=== PATIENT | female | born 1960 | race Caucasian/White ===

== ENCOUNTER 2019-12-20 07:27 | Outpatient (CLI) | payer OTHER, SELFPAY ==
--- NOTE | ~2019-12-20 | MM_ITS ---
EXAMINATION: MM screening kayli BI w mayra HISTORY: Screening mammogram, family history of breast cancer in her mother. TECHNIQUE: Craniocaudal and mediolateral oblique 3-D tomosynthesis images were obtained and synthetic 2-D images were generated. CAD analysis was submitted and interpreted. COMPARISON: 12/15/2018, 12/12/2017, 12/09/2016 BREAST PARENCHYMAL COMPOSITION: There are scattered areas of fibroglandular density. FINDINGS: There is no evidence of suspicious mass, calcification, or architectural distortion to sugg est malignancy in either breast. There has been no suspicious interval change. IMPRESSION: 1. No mammographic evidence of malignancy. 2. Recommend routine screening mammography in one year. BI-RADS Category 1: Negative Reviewed, dictated and finalized at location A.
== END 2019-12-20 07:28 | disposition home or self-care (01) ==
LOC: ANHIMG 07:30
PROVIDERS: PCP Student in an Organized Health Care Education/Training Program; Visit Provider Student in an Organized Health Care Education/Training Program
DX: Z12.31 Encounter for screening mammogram for malignant neoplasm of breast (principal)
CPT/HCPCS: 77063; 77067

== ENCOUNTER 2020-04-29 07:38 | Outpatient (CLI) | payer OTHER, SELFPAY ==
[2020-04-29 07:57] LABS: Hematocrit 40.1 % (37.0-47.0); Mean Corpuscular HGB Conc 32.4 g/dl (32-36); Mean Corpuscular Volume 92.6 fl (80-100); Mean Platelet Volume 10.7 fl (7.4-10.4); Platelet Count Result 216 k/mm3 (150-375); Red Blood Count 4.33 M/mm3 (4.2-5.4); Red Cell Distribution Width 12.2 % (11.5-14.5); White Blood Count 4.6 K/mm3 (4.5-10.0)
[2020-04-29 08:10] LABS: Alanine Aminotransferase 15 U/L (4-35); Albumin Level 4.1 g/dL (3.5-5.1); Alkaline Phosphatase 64 U/L (38-126); Anion Gap 7 mmol/L (8-16); Aspartate Amino Transferase 19 U/L (14-36); Bilirubin,Total 0.5 mg/dL (0.2-1.3); Blood Urea Nitrogen 15 mg/dL (7-17); Calcium 9.6 mg/dL (8.4-10.2); Carbon Dioxide 29 mmol/L (22-30); Chloride 104 mmol/L (98-107); Cholesterol 196 mg/dL (0-200); Estimated Glomerular Filt Rate > 60; Glucose 102 mg/dL (65-105); HDL Direct 65 mg/dL; Potassium 4.3 mmol/L (3.4-5.0); Sodium 140 mmol/L (137-145); Triglycerides 77 mg/dL (<150)
[2020-04-29 08:21] LABS: LDL Cholesterol Direct 86 mg/dL
[2020-04-29 11:00] LABS: Free T4 Free Thyroxine Reflex 0.63 ng/dL (0.78-2.19)
== END 2020-04-29 07:39 | disposition home or self-care (01) ==
PROVIDERS: PCP Student in an Organized Health Care Education/Training Program; Visit Provider Nurse Practitioner Family
DX: E03.9 Hypothyroidism, unspecified (principal); Z00.00 Encounter for general adult medical examination without abnormal findings; I10 Essential (primary) hypertension; E78.5 Hyperlipidemia, unspecified
CPT/HCPCS: 36415; 80053; 80061; 84439; 84443; 85027

== ENCOUNTER 2020-06-10 07:58 | Outpatient (CLI) | payer OTHER, SELFPAY ==
[2020-06-10 08:55] LABS: Free T4 Free Thyroxine 0.83 ng/mL (0.78-2.19)
== END 2020-06-10 07:59 | disposition home or self-care (01) ==
LOC: ANHLAB 08:00
PROVIDERS: PCP Nurse Practitioner Family; Visit Provider Nurse Practitioner Family
DX: R79.89 Other specified abnormal findings of blood chemistry (principal); R94.6 Abnormal results of thyroid function studies
CPT/HCPCS: 36415; 84439; 84443

== ENCOUNTER 2020-12-21 07:29 | Outpatient (CLI) | payer OTHER, SELFPAY ==
--- NOTE | ~2020-12-21 | MM_ITS ---
EXAMINATION: MM screening kayli BI w mayra HISTORY: Screening mammogram, family history of breast cancer in her mother. TECHNIQUE: Craniocaudal and mediolateral oblique 3-D tomosynthesis images were obtained and synthetic 2-D images were generated. CAD analysis was submitted and interpreted. COMPARISON: 12/20/2019, 12/15/2018, 12/12/2017 BREAST PARENCHYMAL COMPOSITION: The breasts are heterogeneously dense, which may obscure small masses . FINDINGS: There is no evidence of suspicious mass, calcification, or architectural distortion to sugg est malignancy in either breast. There has been no suspicious interval change. IMPRESSION: 1. No mammographic evidence of malignancy. 2. Recommend routine screening mammography in one year. BI-RADS Category 1: Negative Reviewed, dictated and finalized at location A.
--- NOTE | ~2020-12-21 | DEXA_ITS ---
Bone Density Report Name: Eleanor Breaux Age: 60 Sex: Female Ethnicity: White Date of : 1960 Indication: osteopenia; postmenopausal Referring Provider: Halley Denny Study: Bone densitometry was performed. Exam Date: December 21, 2020 Accession number: [id number] Bone Density: Region BMD T-score Z-score Classification AP Spine (L1-L4) 0.748 -2.7 -1.2 Osteoporosis Femoral Neck (Left) 0.511 -3.0 -1.7 Osteoporosis Total Hip (Left) 0.642 -2.5 -1.4 Osteoporosis Total Hip Bilateral Avg 0.688 -2.1 -1.0 Osteopenia Femoral Neck (Right) 0.628 -2.0 -0.6 Osteopenia Total Hip (Right) 0.733 -1.7 -0.7 Osteopenia World Health Organization criteria for BMD impression classify patients as: Normal (T-score at or above -1.0), Osteopenia (T-score between -1.0 and -2.5), or Osteoporosis (T-score at or below -2.5). 10-year Fracture Risk: FRAX not reported because: Some T-score for Spine Total or Hip Total or Femoral Neck at or below -2.5 Previous Exams: Region Exam Age BMD T-score BMD Change BMD Change Date g/cm2 vs Baseline vs Previous AP Spine(L1-L4) 12/21/2020 60 0.748 -2.7 -0.098(-11.6%) -0.097(-11.5%) 06/04/2017 57 0.844 -1.8 -0.002(-0.2%)# 0.030(3.6%)* 04/25/2015 55 0.815 -2.1 -0.031(-3.7%)# -0.031(-3.7%)# 11/23/2012 52 0.846 -1.8 Total Hip(Left) 12/21/2020 60 0.642 -2.5 -0.116(-15.3%) -0.224(-25.9%) 06/04/2017 57 0.866 -0.6 0.108(14.3%)# 0.094(12.1%)* 04/25/2015 55 0.772 -1.4 0.015(1.9%)# 0.015(1.9%)# 11/23/2012 52 0.758 -1.5 Total Hip(Right) 12/21/2020 60 0.733 -1.7 -0.048(-6.2%)# -0.133(-15.3%) 06/04/2017 57 0.865 -0.6 0.085(10.9%)# 0.081(10.3%)* 04/25/2015 55 0.785 -1.3 0.004(0.5%)# 0.004(0.5%)# 11/23/2012 52 0.781 -1.3 *Denotes significance at 95% confidence level, LSC for AP Spine = 0.022 g/cm2, LSC for Total Hip = 0.027 g/cm2 Clinical Information Provided by Patient: Has used the following medications: Vitamin D, Calcium Patient maximum height was 62 Menopause Age: 51 Drinks caffeinated beverages Onset of menses at age 11 Number of children 2 Impression: The patient has osteoporosis, based on the Left Femoral Neck T-score. The BMD for the AP Spine(L1-L4) decreased, changing by -11.5% since the last DXA exam. The BMD for the Total Hip(Left) decreased, changing by -25.9% since the last DXA exam. The BMD for the Total Hip(Right) decreased, changing by -15.3% since the last DXA exam.
== END 2020-12-21 07:30 | disposition home or self-care (01) ==
PROVIDERS: PCP Nurse Practitioner Family; Visit Provider Student in an Organized Health Care Education/Training Program
DX: Z12.31 Encounter for screening mammogram for malignant neoplasm of breast (principal); Z78.0 Asymptomatic menopausal state; M81.0 Age-related osteoporosis without current pathological fracture
CPT/HCPCS: 77063; 77067; 77080

== ENCOUNTER 2021-06-19 06:47 | Outpatient (CLI) | payer OTHER, SELFPAY ==
[2021-06-19 07:53] LABS: Alanine Aminotransferase 18 U/L (4-35); Albumin Level 4.3 g/dL (3.5-5.1); Alkaline Phosphatase 53 U/L (38-126); Anion Gap 8 mmol/L (8-16); Aspartate Amino Transferase 23 U/L (14-36); Bilirubin,Total 0.3 mg/dL (0.2-1.3); Blood Urea Nitrogen 27 mg/dL (7-17); Calcium 9.2 mg/dL (8.4-10.2); Carbon Dioxide 22 mmol/L (22-30); Chloride 107 mmol/L (98-107); Cholesterol 225 mg/dL (0-200); Estimated Glomerular Filt Rate > 60; Glucose 111 mg/dL (65-110); HDL Direct 77 mg/dL; Potassium 4.4 mmol/L (3.4-5.0); Sodium 137 mmol/L (137-145); Triglycerides 83 mg/dL (<150)
[2021-06-19 08:05] LABS: LDL Cholesterol Direct 98 mg/dL
[2021-06-19 08:07] LABS: Basophils Absolute Auto 0.1 K/mm3 (0.0-0.1); Basophils Percent Auto 0.9 % (0.2-1.2); Eosinophils Absolute Auto 0.2 K/mm3 (0-0.3); Hematocrit 41.4 % (37.0-47.0); Immature Granulocyte Absolute 0.01 K/mm3 (0.00-0.031); Immature Granulocyte Percent A 0.2 % (0-0.5); Lymphocytes Absolute Auto 1.58 K/mm3 (0.9-3.2); Mean Corpuscular HGB Conc 31.4 g/dl (32-36); Mean Corpuscular Volume 95.6 fl (80-100); Mean Platelet Volume 10.6 fl (7.4-10.4); Monocytes Absolute Auto 0.5 K/mm3 (0.1-0.6); Monocytes Percent Auto 9.3 % (2.6-8.5); Neutrophils Percent Auto 56.6 % (45.5-73.1); Platelet Count Result 223 k/mm3 (150-375); Red Blood Count 4.33 M/mm3 (4.2-5.4); Red Cell Distribution Width 12.6 % (11.5-14.5); White Blood Count 5.3 K/mm3 (4.5-10.0)
[2021-06-19 08:11] LABS: Vitamin D 25 Hydroxy 53.8 ng/mL
== END 2021-06-19 06:48 | disposition home or self-care (01) ==
LOC: ANHLAB 06:50
PROVIDERS: PCP Nurse Practitioner Family; Visit Provider Nurse Practitioner Family
DX: E55.9 Vitamin D deficiency, unspecified (principal); Z00.00 Encounter for general adult medical examination without abnormal findings; Z13.220 Encounter for screening for lipoid disorders
CPT/HCPCS: 36415; 80053; 80061; 82306; 84443; 85025

== ENCOUNTER 2022-01-25 07:20 | Outpatient (CLI) | payer OTHER, SELFPAY ==
--- NOTE | ~2022-01-25 | MM_ITS ---
EXAMINATION: MM screening kayli BI w mayra HISTORY: Screening TECHNIQUE: Craniocaudal and mediolateral oblique 3-D tomosynthesis images were obtained and synthetic 2-D images were generated. CAD analysis was submitted and interpreted. COMPARISON: Comparison to multiple prior studies sequentially, with oldest reviewed study dated 11/26. BREAST PARENCHYMAL COMPOSITION: There are scattered areas of fibroglandular density. FINDINGS: There is no evidence of suspicious mass, calcification, or architectural distortion to sugg est malignancy in either breast. There has been no suspicious interval change. IMPRESSION: 1. No mammographic evidence of malignancy. 2. Recommend routine screening mammography in one year. BI-RADS Category 1: Negative Reviewed, dictated and finalized at location A.
== END 2022-01-25 07:21 | disposition home or self-care (01) ==
LOC: ANHIMG 07:22
PROVIDERS: PCP Nurse Practitioner Family; Visit Provider Obstetrics & Gynecology
DX: Z12.31 Encounter for screening mammogram for malignant neoplasm of breast (principal)
CPT/HCPCS: 77063; 77067

== ENCOUNTER 2022-06-27 10:10 | Outpatient (CLI) | payer OTHER, SELFPAY ==
[2022-06-27 12:01] LABS: Basophils Percent Auto 0.6 % (0.2-1.2); Eosinophils Absolute Auto 0.1 K/mm3 (0-0.3); Eosinophils Percent Auto 1.1 % (0-4.4); Hematocrit 42.1 % (37.0-47.0); Hemoglobin 13.5 g/dL (12.0-15.0); Immature Granulocyte Absolute 0.01 K/mm3 (0.00-0.031); Immature Granulocyte Percent A 0.2 % (0-0.5); Lymphocytes Absolute Auto 1.81 K/mm3 (0.9-3.2); Lymphocytes Percent Auto 38.6 % (18.3-44.2); Mean Corpuscular HGB Conc 32.1 g/dl (32-36); Mean Corpuscular Hemoglobin 30.6 pg (26-34); Mean Corpuscular Volume 95.5 fl (80-100); Monocytes Absolute Auto 0.4 K/mm3 (0.1-0.6); Monocytes Percent Auto 7.9 % (2.6-8.5); Neutrophils Absolute Auto 2.4 K/mm3 (1.3-6.7); Neutrophils Percent Auto 51.6 % (45.5-73.1); Platelet Count Result 255 k/mm3 (150-375); Red Blood Count 4.41 M/mm3 (4.2-5.4); Red Cell Distribution Width 12.5 % (11.5-14.5); White Blood Count 4.7 K/mm3 (4.5-10.0)
[2022-06-27 12:11] LABS: Alanine Aminotransferase 21 U/L (6-35); Albumin Level 4.6 g/dL (3.5-5.1); Alkaline Phosphatase 68 U/L (38-126); Anion Gap 8 mmol/L (8-16); Aspartate Amino Transferase 26 U/L (14-36); Bilirubin,Total 0.4 mg/dL (0.2-1.3); Blood Urea Nitrogen 18 mg/dL (7-17); Calcium 9.3 mg/dL (8.4-10.2); Carbon Dioxide 26 mmol/L (22-30); Chloride 101 mmol/L (98-107); Cholesterol 260 mg/dL (0-200); Estimated Glomerular Filt Rate > 60; Glucose 91 mg/dL (65-110); HDL Direct 69 mg/dL; Sodium 135 mmol/L (137-145); Triglycerides 80 mg/dL (<150)
[2022-06-27 12:22] LABS: LDL Cholesterol Direct 113 mg/dL
[2022-06-27 14:39] LABS: Free T4 Free Thyroxine 0.97 ng/mL (0.78-2.19); Vitamin D 25 Hydroxy 55.8 ng/mL
== END 2022-06-27 10:11 | disposition home or self-care (01) ==
LOC: ANHLAB 10:12
PROVIDERS: PCP Nurse Practitioner Family; Visit Provider Nurse Practitioner Family
DX: Z00.00 Encounter for general adult medical examination without abnormal findings (principal); E78.5 Hyperlipidemia, unspecified; E55.9 Vitamin D deficiency, unspecified
CPT/HCPCS: 36415; 80053; 80061; 82306; 84439; 84443; 85025

== ENCOUNTER 2022-12-26 06:32 | Outpatient (CLI) | payer OTHER, SELFPAY ==
[2022-12-26 10:36] LABS: Cholesterol 204 mg/dL (0-200); HDL Direct 60 mg/dL; Triglycerides 91 mg/dL (<150)
[2022-12-26 10:47] LABS: LDL Cholesterol Direct 93 mg/dL
== END 2022-12-26 06:33 | disposition home or self-care (01) ==
PROVIDERS: PCP Nurse Practitioner Family; Visit Provider Nurse Practitioner Family
DX: E78.5 Hyperlipidemia, unspecified (principal)
CPT/HCPCS: 36415; 80061

== ENCOUNTER 2023-03-20 01:01 | Day surgery (SDC) | payer OTHER, SELFPAY ==
[2023-03-07 11:53] VITALS: BMI 21.2
--- NOTE | 2023-03-19 16:47 | PM.HPGS ---
History of Present Illness History of Present Illness Consent: Risks, benefits, and alternatives have been discussed and questions answered. Patient agrees to proceed with procedure. Chief complaint: neoplasm screening Narrative: Eleanor Breaux is a 62 year old female Referred for colon cancer screening. Review of Systems Review of Systems: All systems reviewed & are unremarkable except as noted in HPI and below PMFSH Past Medical History Medical History Encounter for gynecological examination (general) (routine) without abnormal findings Hyperlipidemia Melanoma in situ (~10/2021) Lt upper thigh. Follows with Dr Romero Normal colonoscopy (~2011) Dr Valentin Osteopenia Osteoporosis Vaginal dryness, menopausal Surgical History Surgical History H/O LEEP History of melanoma excision Left leg 11/2021 Family History Family History Mother Family history of elevated blood lipids Father Family history of diabetes mellitus in first degree relative Family history of sleep apnea Family history of atrial fibrillation Diabetes mellitus Family history of blood dyscrasia, Onset Age: 72 Grandparent Family history of malignant neoplasm of bone Family history of malignant neoplasm of kidney Diabetes mellitus Other Family history of malignant neoplasm Hypertension Social History Social History Social History: Patient is and lives with , Darren in [place]. She is an RN, work full-time for [employer]. Smoking status: Never smoker Second hand tobacco smoke exposure: No Alcohol intake: current Alcohol use details: very rare use Substance use: never Substance use type: does not use Lack of Transportation: No Lack of Food: Never True Current Housing: I Have Housing Concerned About Future Housing: No Difficulty Paying Gas/Electric Bills: No Difficulty Paying for Meds: No Currently Unemployed: No Education: Associate Degree Difficulty w/ Childcare or Family Care: No Living arrangements: with family Occupation/Education: occupation Additional occupation/education comments: RN at [employer] Gender identity (if verbalized by the patient): Female Sexual Orientation (if Verbalized by the Patient): Straight or Heterosexual Spiritual care concerns: No Agree to blood products: Yes Meds Home Medications and Allergies Home Medications Medication Instructions Recorded Confirmed Type ascorbic acid (vitamin C) 250 mg 250 mg PO DAILY 05/28/19 03/20/23 History tablet ojqe-lxs-hjodd-pbopmcftk-isfzwtzs-kzkr-pectin 1 tablet PO DAILY 05/28/19 03/20/23 History 1,000 mg tablet (Fiber 6) cholecalciferol (vitamin D3) 50 2,000 unit PO DAILY 05/28/19 03/20/23 History mcg (2,000 unit) tablet estradiol 10 mcg vaginal insert 10 mcg vaginal 2XW 05/28/19 03/20/23 History (Imvexxy Maintenance Pack) omega-3 fatty acids 1,000 mg 1,000 mg PO DAILY 05/28/19 03/20/23 History capsule vitamin E 200 unit capsule 200 unit PO DAILY 05/28/19 03/20/23 History alendronate 35 mg tablet See Rx Instructions .Route 06/20/22 03/20/23 Rx .COMPLEX #12 tabs calcium carbonate 500 mg calcium 500 mg PO BID 03/07/23 03/20/23 History (1,250 mg) tablet Allergies Allergy/AdvReac Type Severity Reaction Status Date / Time penicillin G Allergy Mild Rash Verified 03/20/23 06:18 Penicillins Allergy Mild Rash Verified 03/20/23 06:18 tree nut Allergy Unknown Other Verified 03/20/23 06:18 codeine AdvReac Mild NAUSEA Verified 03/20/23 06:18 Exam Const: General: alert Orientation/consciousness: patient oriented x3 Resp: Auscultation: clear to auscultation bilaterally Cardio: Rhythm: regular rhythm GI: GI Palp: Yes Soft to palpation and No Tenderness to palpa
[2023-03-20 06:21] VITALS: BP 103/63; PULSE 69; RESP 16; TEMP 36.6; O2SAT 99
[2023-03-20] MEDS: LACTATED RINGERS 1,000 ML 150 ML IV CONT (06:30)
--- NOTE | 2023-03-20 07:00 | WPDANESEPPF ---
Anes - Initial Pre Proc Eval Procedure: Operation Date: 03/20/23 07:30 Proposed Procedures p Screening Colonoscopy - Kenny Valentin MD Date/Time: 03/20/23 07:00 Surgeon: Kenny Valentin MD Pre Op Diagnosis: neoplasm screening Patient Data Age: 62 Gender: F Height: 1.55 m Weight: 50.1 kg Last Vital Signs Temp 36.6 C 03/20/23 06:21 Pulse 69 03/20/23 06:21 Resp 16 03/20/23 06:21 BP 103/63 03/20/23 06:21 Pulse Ox 99 03/20/23 06:21 O2 Del Method Room Air 03/20/23 06:21 Allergies Allergy/AdvReac Type Severity Reaction Status Date / Time penicillin G Allergy Mild Rash Verified 03/20/23 06:18 Penicillins Allergy Mild Rash Verified 03/20/23 06:18 tree nut Allergy Unknown Other Verified 03/20/23 06:18 codeine AdvReac Mild NAUSEA Verified 03/20/23 06:18 Home Medications Medication Instructions Recorded Confirmed Type ascorbic acid (vitamin C) 250 mg 250 mg PO DAILY 05/28/19 03/20/23 History tablet ijjq-vqi-qoukl-ydreanrea-ntrcgrom-edpi-pectin 1 tablet PO DAILY 05/28/19 03/20/23 History 1,000 mg tablet (Fiber 6) cholecalciferol (vitamin D3) 50 2,000 unit PO DAILY 05/28/19 03/20/23 History mcg (2,000 unit) tablet estradiol 10 mcg vaginal insert 10 mcg vaginal 2XW 05/28/19 03/20/23 History (Imvexxy Maintenance Pack) omega-3 fatty acids 1,000 mg 1,000 mg PO DAILY 05/28/19 03/20/23 History capsule vitamin E 200 unit capsule 200 unit PO DAILY 05/28/19 03/20/23 History alendronate 35 mg tablet See Rx Instructions .Route 06/20/22 03/20/23 Rx .COMPLEX #12 tabs calcium carbonate 500 mg calcium 500 mg PO BID 03/07/23 03/20/23 History (1,250 mg) tablet Patient hx anesthesia problems: none Family hx anesthesia problems: none Results Review: All pre-operative results and documents have been reviewed as part of the pre-operative evaluation. [facility] Past Medical History Medical History Encounter for gynecological examination (general) (routine) without abnormal findings Hyperlipidemia Melanoma in situ (~10/2021) Lt upper thigh. Follows with Dr Romero Normal colonoscopy (~2011) Dr Valentin Osteopenia Osteoporosis Vaginal dryness, menopausal Surgical History Surgical History H/O LEEP History of melanoma excision Left leg 11/2021 Family History Family History Mother Family history of elevated blood lipids Father Family history of diabetes mellitus in first degree relative Family history of sleep apnea Family history of atrial fibrillation Diabetes mellitus Family history of blood dyscrasia, Onset Age: 72 Grandparent Family history of malignant neoplasm of bone Family history of malignant neoplasm of kidney Diabetes mellitus Other Family history of malignant neoplasm Hypertension Social History Social History Social History: Patient is and lives with , Darren in [place]. She is an RN, work full-time for [employer]. Smoking status: Never smoker Second hand tobacco smoke exposure: No Alcohol intake: current Alcohol use details: very rare use Substance use: never Substance use type: does not use Lack of Transportation: No Lack of Food: Never True Current Housing: I Have Housing Concerned About Future Housing: No Difficulty Paying Gas/Electric Bills: No Difficulty Paying for Meds: No Currently Unemployed: No Education: Associate Degree Difficulty w/ Childcare or Family Care: No Living arrangements: with family Occupation/Education: occupation Additional occupation/education comments: RN at [employer] Gender identity (if verbalized by the patient): Female Sexual Orientation (if Verbalized by the Patient): Straight or Heterosexual Spiritual care concerns: No Agree to blood p
[2023-03-20 07:55] VITALS: BP 92/46; PULSE 73; RESP 12; O2SAT 99
[2023-03-20 08:05] VITALS: BP 92/58; PULSE 68; RESP 24; O2SAT 100
[2023-03-20 08:15] VITALS: BP 92/56; PULSE 58; RESP 14; O2SAT 100
== END 2023-03-20 08:20 | disposition home or self-care (01) ==
PROVIDERS: PCP Family Medicine; Visit Provider Internal Medicine Gastroenterology
PROC: 0DJD8ZZ Inspection of Lower Intestinal Tract, Via Natural or Artificial Opening Endoscopic (ICD-10-PCS; CPT 45378; principal; 2023-03-20 07:30)
DX: Z12.11 Encounter for screening for malignant neoplasm of colon (principal); K63.5 Polyp of colon; M81.0 Age-related osteoporosis without current pathological fracture; M85.80 Other specified disorders of bone density and structure, unspecified site; N95.2 Postmenopausal atrophic vaginitis; E78.5 Hyperlipidemia, unspecified
CPT/HCPCS: 45380; 88305; J2704; J7120

== ENCOUNTER → 2023-04-01 07:21 | Outpatient (CLI) | payer OTHER, SELFPAY ==
--- NOTE | ~2023-04-01 | MM_ITS ---
EXAMINATION: MM screening kayli BI w mayra HISTORY: Screening mammogram TECHNIQUE: Craniocaudal and mediolateral oblique 3-D tomosynthesis images were obtained and synthetic 2-D images were generated. CAD analysis was submitted and interpreted. COMPARISON: 01/25/2022, 12/21/2020, 12/20/2019, 12/15/2018, 12/12/2017 bilateral screening mammogram examin ations BREAST PARENCHYMAL COMPOSITION: The breasts are heterogeneously dense, which may obscure small masses . FINDINGS: Stable fibroglandular asymmetry. There is no evidence of suspicious mass, calcification, or architectural distortion to suggest malignancy in either breast. There has been no suspicious interv al change. IMPRESSION: 1. No mammographic evidence of malignancy. 2. Recommend routine screening mammography in one year. BI-RADS Category 2: Benign finding(s). Reviewed, dictated and finalized at location A.
== END ==
PROVIDERS: PCP Family Medicine; Visit Provider Obstetrics & Gynecology
DX: Z12.31 Encounter for screening mammogram for malignant neoplasm of breast (principal)
CPT/HCPCS: 77063; 77067

== ENCOUNTER 2023-06-28 06:34 | Outpatient (CLI) | payer OTHER, SELFPAY ==
[2023-06-28 07:26] LABS: Basophils Percent Auto 0.7 % (0.2-1.2); Eosinophils Absolute Auto 0.1 K/mm3 (0-0.3); Eosinophils Percent Auto 2.4 % (0-4.4); Hematocrit 41.5 % (37.0-47.0); Hemoglobin 13.2 g/dL (12.0-15.0); Immature Granulocyte Absolute 0.01 K/mm3 (0.00-0.031); Immature Granulocyte Percent A 0.2 % (0-0.5); Lymphocytes Absolute Auto 1.64 K/mm3 (0.9-3.2); Mean Corpuscular HGB Conc 31.8 g/dl (32-36); Mean Corpuscular Volume 94.3 fl (80-100); Mean Platelet Volume 9.9 fl (7.4-10.4); Monocytes Absolute Auto 0.4 K/mm3 (0.1-0.6); Neutrophils Absolute Auto 2.4 K/mm3 (1.3-6.7); Neutrophils Percent Auto 51.7 % (45.5-73.1); Platelet Count Result 277 k/mm3 (150-375); White Blood Count 4.6 K/mm3 (4.5-10.0)
[2023-06-28 07:49] LABS: Alanine Aminotransferase 22 U/L (6-35); Albumin Level 4.1 g/dL (3.5-5.1); Alkaline Phosphatase 63 U/L (38-126); Anion Gap 8 mmol/L (8-16); Aspartate Amino Transferase 26 U/L (14-36); Bilirubin,Total 0.5 mg/dL (0.2-1.3); Blood Urea Nitrogen 18 mg/dL (7-17); Calcium 9.3 mg/dL (8.4-10.2); Carbon Dioxide 29 mmol/L (22-30); Chloride 102 mmol/L (98-107); Cholesterol 199 mg/dL (0-200); Estimated Glomerular Filt Rate > 60; Glucose 103 mg/dL (65-110); HDL Direct 61 mg/dL; Potassium 4.1 mmol/L (3.4-5.0); Sodium 139 mmol/L (137-145); Triglycerides 85 mg/dL (<150)
[2023-06-28 08:00] LABS: LDL Cholesterol Direct 88 mg/dL
[2023-06-28 08:32] LABS: Vitamin D 25 Hydroxy 70.7 ng/mL
[2023-06-28 10:57] LABS: Eosinophils Absolute Manual 0.18 K/mm3 (0.02-0.5); Eosinophils Percent Manual 4 % (0-4); Lymphocytes Absolute Manual 1.56 K/mm3 (1.1-4.5); Monocytes Absolute Manual 0.32 K/mm3 (0.1-0.90); Monocytes Percent Manual 7 % (3-9); Neutrophils Percent Manual 55 % (46-73); Platelet Estimate Adequate (Adequate); Schistocytes None Seen (NORMAL); Total Cells Counted 100
== END 2023-06-28 06:35 | disposition home or self-care (01) ==
PROVIDERS: PCP Family Medicine; Visit Provider Family Medicine
DX: Z00.00 Encounter for general adult medical examination without abnormal findings (principal); E55.9 Vitamin D deficiency, unspecified; E53.8 Deficiency of other specified B group vitamins; Z13.29 Encounter for screening for other suspected endocrine disorder; E78.5 Hyperlipidemia, unspecified
CPT/HCPCS: 36415; 80053; 80061; 82306; 82607; 84443; 85025

== ENCOUNTER 2023-12-24 07:41 | Outpatient (CLI) | payer OTHER, SELFPAY ==
--- NOTE | ~2023-12-24 | DEXA_ITS ---
Bone Density Report Name: SAMIA ORDAZ Age: 63 Sex: Female Ethnicity: White Date of : 1960 Indication: postmenopausal; screening for osteoporosis; Referring Provider: NICHOLAS VALDEZ Study: Bone densitometry was performed. Exam Date: December 24, 2023 Accession number: [id number] Bone Density: Region BMD T-score Z-score Classification AP Spine(L1-L4) 0.755 -2.7 -0.9 Osteoporosis Femoral Neck (Left) 0.548 -2.7 -1.2 Osteoporosis Total Hip (Left) 0.714 -1.9 -0.7 Osteopenia Femoral Neck (Right) 0.615 -2.1 -0.6 Osteopenia Total Hip (Right) 0.746 -1.6 -0.4 Osteopenia Total Hip Mean 0.730 -1.8 -0.6 Osteopenia World Health Organization criteria for BMD impression classify patients as: Normal (T-score at or above -1.0), Osteopenia (T-score between -1.0 and -2.5), or Osteoporosis (T-score at or below -2.5). 10-year Fracture Risk: FRAX not reported because: Some T-score for Spine Total or Hip Total or Femoral Neck at or below -2.5 Treated for osteoporosis Clinical Information Provided by Patient: Is being treated for osteoporosis Has used the following medications: Fosamax (i.e. alendronate), Vitamin D, Calcium Patient maximum height was 62 Menopause Age: 52 Drinks caffeinated beverages Onset of menses at age 11 Number of children 2 Impression: The patient has osteoporosis, based on the Total Spine T-score. Discussion: It is important to ask patients whether they are taking their medications and to encourage continued and appropriate compliance with their osteoporosis therapies to reduce fracture risk. It is also important to review their risk factors and encourage appropriate calcium and vitamin D intakes, exercise, fall prevention and other lifestyle measures. Follow-Up: Consider a repeat BMD and Vertebral Fracture Assessment (VFA) exam in 2 years or sooner if medically necessary, to reassess this patient's status. Reported by: BERYL on 12/24/2023 8:06:00 AM. Reviewed, dictated and finalized at location AYani QUIGLEY
== END 2023-12-24 07:42 | disposition home or self-care (01) ==
LOC: ANHIMG 07:42
PROVIDERS: PCP Family Medicine; Visit Provider Obstetrics & Gynecology
DX: M81.0 Age-related osteoporosis without current pathological fracture (principal); Z78.0 Asymptomatic menopausal state
CPT/HCPCS: 77080

== ENCOUNTER 2024-03-29 07:54 | Outpatient (CLI) | payer OTHER, SELFPAY ==
[2024-03-29 08:13] LABS: Calcium 9.2 mg/dL (8.4-10.2)
== END 2024-03-29 07:55 | disposition home or self-care (01) ==
LOC: ANHLAB 07:56
PROVIDERS: Visit Provider Obstetrics & Gynecology
DX: M81.0 Age-related osteoporosis without current pathological fracture (principal)
CPT/HCPCS: 36415; 82310

== ENCOUNTER 2024-04-07 09:01 | Outpatient (CLI) | payer OTHER, SELFPAY ==
--- NOTE | ~2024-04-07 | MM_ITS ---
EXAMINATION: MM screening kayli BI w mayra HISTORY: Screening TECHNIQUE: Craniocaudal and mediolateral oblique 3-D tomosynthesis images were obtained and synthetic 2-D images were generated. CAD analysis was submitted and interpreted. COMPARISON: Comparison to multiple prior studies sequentially, with oldest reviewed study dated 02/2018. BREAST PARENCHYMAL COMPOSITION: Dense: The breasts are heterogeneously dense, which may obscure small masses FINDINGS: There is no evidence of suspicious mass, calcification, or architectural distortion to sugg est malignancy in either breast. There has been no suspicious interval change. IMPRESSION: 1. No mammographic evidence of malignancy. 2. Recommend routine screening mammography in one year. BI-RADS Category 1: Negative Reviewed, dictated and finalized at location B.
== END 2024-04-07 09:02 | disposition home or self-care (01) ==
LOC: ANHIMG 09:05
PROVIDERS: PCP Family Medicine; Visit Provider Obstetrics & Gynecology
DX: Z12.31 Encounter for screening mammogram for malignant neoplasm of breast (principal)
CPT/HCPCS: 77063; 77067

== ENCOUNTER 2024-05-25 06:43 | Outpatient (RCR) | payer OTHER, SELFPAY ==
[2024-05-25 07:17] LABS: Calcium 8.9 mg/dL (8.4-10.2)
[2024-07-19 11:53] LABS: Calcium 9.1 mg/dL (8.4-10.2)
== END 2024-08-23 23:59 | disposition home or self-care (01) ==
LOC: ANHLAB 06:43
PROVIDERS: PCP Family Medicine; Visit Provider Obstetrics & Gynecology
DX: M81.0 Age-related osteoporosis without current pathological fracture (principal)
CPT/HCPCS: 36415; 82310

== ENCOUNTER 2024-07-19 06:52 | Outpatient (CLI) | payer OTHER, SELFPAY ==
[2024-07-19 07:13] LABS: Basophils Absolute Auto 0.1 K/mm3 (0.0-0.1); Basophils Percent Auto 1.1 % (0.2-1.2); Eosinophils Absolute Auto 0.3 K/mm3 (0-0.3); Eosinophils Percent Auto 7.3 % (0-4.4); Hematocrit 38.9 % (37.0-47.0); Hemoglobin 12.2 g/dL (12.0-15.0); Immature Granulocyte Absolute 0.01 K/mm3 (0.00-0.031); Immature Granulocyte Percent A 0.2 % (0-0.5); Lymphocytes Percent Auto 37.8 % (18.3-44.2); Mean Corpuscular HGB Conc 31.4 g/dl (32-36); Mean Corpuscular Hemoglobin 30.2 pg (26-34); Mean Corpuscular Volume 96.3 fl (80-100); Mean Platelet Volume 10.3 fl (7.4-10.4); Monocytes Absolute Auto 0.5 K/mm3 (0.1-0.6); Monocytes Percent Auto 10.2 % (2.6-8.5); Neutrophils Percent Auto 43.4 % (45.5-73.1); Platelet Count Result 226 k/mm3 (150-375); Red Blood Count 4.04 M/mm3 (4.2-5.4); Red Cell Distribution Width 13.1 % (11.5-14.5); White Blood Count 4.5 K/mm3 (4.5-10.0)
[2024-07-19 07:24] LABS: Hemoglobin A1C 5.5 % (<5.7)
[2024-07-19 07:25] LABS: Alanine Aminotransferase 17 U/L (6-35); Albumin Level 3.9 g/dL (3.5-5.1); Alkaline Phosphatase 74 U/L (38-126); Anion Gap 2 mmol/L (4-12); Aspartate Amino Transferase 22 U/L (14-36); Bilirubin,Total 0.3 mg/dL (0.2-1.3); Blood Urea Nitrogen 17 mg/dL (7-17); Calcium 9.1 mg/dL (8.4-10.2); Carbon Dioxide 30 mmol/L (22-30); Chloride 107 mmol/L (98-107); Cholesterol 219 mg/dL (0-200); Estimated Glomerular Filt Rate > 60; Glucose 98 mg/dL (65-110); HDL Direct 82 mg/dL; Potassium 4.8 mmol/L (3.4-5.0); Sodium 139 mmol/L (137-145); Triglycerides 68 mg/dL (<150)
[2024-07-19 07:36] LABS: LDL Cholesterol Direct 94 mg/dL
[2024-07-19 09:39] LABS: Vitamin D 25 Hydroxy 63.1 ng/mL
[2024-07-19 10:31] LABS: Free T4 Free Thyroxine Reflex 0.75 ng/dL (0.78-2.19)
== END 2024-07-19 06:53 | disposition home or self-care (01) ==
LOC: ANHLAB 06:53
PROVIDERS: PCP Family Medicine; Visit Provider Family Medicine
DX: Z00.00 Encounter for general adult medical examination without abnormal findings (principal); Z13.29 Encounter for screening for other suspected endocrine disorder; E55.9 Vitamin D deficiency, unspecified; R73.9 Hyperglycemia, unspecified; E78.5 Hyperlipidemia, unspecified; E53.8 Deficiency of other specified B group vitamins; Z79.899 Other long term (current) drug therapy
CPT/HCPCS: 36415; 80053; 80061; 82306; 82607; 83036; 84439; 84443; 85025

== ENCOUNTER 2024-09-13 07:05 | Outpatient (CLI) | payer OTHER, SELFPAY ==
--- OUTSIDE RECORDS SUMMARY | 2024-09-13 07:08 | XMS_ITS | Clinical Summary ---
Author Organization [facility] Address [address] [place] [address] Care Team Providers Care [place] Boatman Name Role Phone Unavailable Primary Care Provider Unavailabl e Source Comments [facility],non-owned Affiliates and Associated Physician Practices is amultiple site organization consisting of ambulatory clinics and hospital sitesin [place], [place], [place] and [place]. This disclosure is being madepursuant to the Care Everywhere program and may not contain all information available regarding this patient. Last updated 18.[facility] [employer] Social History Tobacco Use Types Packs/Day Years Used Date Smoking Tobacco: Never Assessed Sex and Gender Information Value Date Recorded Sex Assigned at Not on file Gender Identity Not on file Sexual Orientation Not on file Plan of Treatment Health Maintenance Due Date Last Done Comments BONE DENSITY TESTING 1960 COLOGUARD (AGES 45-75) - COL ON CA SCREENING 1960 COLON MONITORING 1960 COLONOSCOPY - COLON CA SCREENING 1960 CT COLONOGRAPHY - COLON CA SCREENING 1960 Colorectal Cancer Screening 1960 FIT - COLON CA SCREENING 1960 FLEX SIG - COLON CA SCREENING 1960 LIPID TESTING 1960 MAMMOGRAM 1960 PAP SMEAR 1959 HIV SCREENING 1974 HEPATITIS C SCREENING 03/29/1977 DTAP/TDAP/TD VACCINES (1 - Tdap) 1978 PNEUMOCOCCAL VACCINE 50+ (1 of 1 - PCV) 2009 ZOSTER VACCINE (1 of 2) 2009 COVID-19 VACCINE ( - 2023-2 5 season) 2024 INFLUENZA VACCINE (#1) 2024 DEPRESSION SCREENING 07/07/2024 Respiratory Syncytial Virus (RSV) Vaccine Pt: or over 60 yrs (1 - 1-dose 75+ series) 2034 HEPATITIS B VACCINE Aged Out No longe r eligible based on patient's age to complete this topic HIB VACCINE Aged Out No longer eligi ble based on patient's age to complete this topic HPV VACCINE Aged Out No longer eligi ble based on patient's age to complete this topic MENINGOCOCCAL (Group B) VACCINE Aged Out No longer eligible based on patient's age to complete this topic MENINGOCOCCAL VACCINE Aged Out No farrukh izzy eligible based on patient's age to complete this topic ELEANOR BREAUX Personal/Family Spouse [address] [place] [id number]
--- OUTSIDE RECORDS SUMMARY | 2024-09-13 07:08 | XMS_ITS | Patient Health Summary ---
Author Organization [facility] Address [address] [place] [address] Care Team Providers Care Bar Waiter/Waitress Name Role Phone Unavailable Primary Care Provider Unavailabl e Note from [facility],non-owned Affiliates and Associated Physician Practices is amultiple site organization consisting of ambulatory clinics and hospital sitesin [place], [place], [place] and [place]. This disclosure is being madepursuant to the Care Everywhere program and may not contain all information available regarding this patient. Last updated 18.[facility] Social History Tobacco Use Types Packs/Day Years Used Date Smoking Tobacco: Never Assessed Sex and Gender Information Value Date Recorded Sex Assigned at Not on file Gender Identity Not on file Sexual Orientation Not on file Procedures * DERMATOPATHOLOGY(Performed 10/10/2021) Results * DERMATOPATHOLOGY (10/10/2021 12:00 AM CDT) Case Report Dermatopathology Report Case: [id number] Authorizing Provider: Scottie Romero MD Collected: 10/10/2021 12:00 AM Ordering Location: [facility] DermPath Lab Received: 10/11/2021 01:41 PM Pathologist: Savana Mathur MD Specimen: Skin, left distal anterior thigh 4:52 PM CDT DERMATOPATHOLOGY LABORATORY Final Diagnosis Specimen A. SKIN, left distal anterior thigh: MELANOMA IN SITU, SUPERFICIAL SPREADING TYPE (D03.72) NOT PRESENT AT SAMPLED MARGIN (see microscopic description) 2 4:52 PM CDT DERMATOPATHOLOGY LABORATORY Clinical History R/O Dysplastic Nevus 4:52 PM CDT DERMATOPATHOLOGY LABORATORY Gross Description Specimen A: Received is one formalin filled container labeled with the patients name and designated left distal anterior thigh. The specimen consists of a shave removal measuring [id number] and it is inked. Jar 0. 2 4:52 PM CDT DERMATOPATHOLOGY LABORATORY Microscopic Description Specimen A. SKIN, left distal anterior thigh: There is a proliferation of melanocytes distributed in an irregular pattern, singly and in nests, at all levels of the epidermis. Melanocytes are highlighted with immunohistochemical staining for MART-1/Melan-A. This lesion is not present at the sampled margin of the specimen. COMMENT: This case was also reviewed by Dr. Rebekah Marin, who agrees. 2 4:52 PM CDT DERMATOPATHOLOGY LABORATORY Disclaimer An external and internal positive and negative controls are appropriate for the histochemical, immunohistochemical and immunofluorescence stain(s) in this case (if any), except where stated explicitly. The performance characteristics of the stain(s) cited in this report were developed and its performance characteristic determined by the Dermatopathology Laboratory at [facility], directed by Dr. Charis Vo. These tests need not be, and therefore are not, approved by the [place] Food and Drug Administration. The tests are used for clinical purposes. Billing Codes Specimen Charges Stain Charges 70165 1 11491 1 2 4:52 PM CDT DERMATOPATHOLOGY LABORATORY Embedded Images 2 4:52 PM CDT DERMATOPATHOLOGY LABORATORY Pathology/Cytolog y TISSUE SPECIMEN FROM SKIN / Unknown 10/10/2021 10/11/2021 1:41 PM CDT Scottie Romero MD LAB - PATHOLOGY/CYTO LOGY ORDERABLES DERMATOPATHOLOGY LABORATORY [facility] - Department of Dermatology [address], [address] Floor [address] [phone]
--- OUTSIDE RECORDS SUMMARY | 2024-09-13 07:08 | XMS_ITS | Encounter Summary ---
Author Organization [facility] Address [address] [place] [place] [address] Care Team Providers Care Skimmer Reverberatory Name Role Phone Unavailable Primary Care Provider Unavailabl e Encounter Details Date Type Department Care Team (Late st Contact Info) Description 10/11/2021 Lab Requisition [facility] DermPath Lab [address] [place] [phone] Scottie Romero MD [address] [place] [address] Social History Tobacco Use Types Packs/Day Years Used Date Smoking Tobacco: Never Assessed Sex and Gender Information Value Date Recorded Sex Assigned at Not on file Gender Identity Not on file Sexual Orientation Not on file documented as of this encounter Plan of Treatment Not on file documented as of this encounter Procedures Procedure Name Priority Date/Time Associated Diagnosis Comments DERMATOPATHOLOGY Routine 10/10/2021 12:0 0 AM CDT documented in this encounter Results * DERMATOPATHOLOGY (10/10/2021 12:00 AM CDT) Case Report Dermatopathology Report Case: [id number] Authorizing Provider: Scottie Romero MD Collected: 10/10/2021 12:00 AM Ordering Location: [facility] DermPath Lab Received: 10/11/2021 01:41 PM Pathologist: Savana Mathur MD Specimen: Skin, left distal anterior thigh 4:52 PM CDT DERMATOPATHOLOGY LABORATORY Final Diagnosis Specimen A. SKIN, left distal anterior thigh: MELANOMA IN SITU, SUPERFICIAL SPREADING TYPE (D03.72) NOT PRESENT AT SAMPLED MARGIN (see microscopic description) 4:52 PM CDT DERMATOPATHOLOGY LABORATORY Clinical History R/O Dysplastic Nevus 2 4:52 PM CDT DERMATOPATHOLOGY LABORATORY Gross Description Specimen A: Received is one formalin filled container labeled with the patients name and designated left distal anterior thigh. The specimen consists of a shave removal measuring [id number] and it is inked. Jar 0. 2 [...] characteristic determined by the Dermatopathology Laboratory at [facility], directed by Dr. Charis Vo. These tests need not be, and therefore are not, approved by the [place] Food and Drug Administration. The tests are used for clinical purposes. Billing Codes Specimen Charges Stain Charges 96424 1 46878 1 2 4:52 PM CDT DERMATOPATHOLOGY LABORATORY Embedded Images 2 4:52 PM CDT DERMATOPATHOLOGY LABORATORY Pathology/Cytolog y TISSUE SPECIMEN FROM SKIN / Unknown 10/10/2021 10/11/2021 1:41 PM CDT Scottie Romero MD LAB - PATHOLOGY/CYTO LOGY ORDERABLES DERMATOPATHOLOGY LABORATORY [facility] - Department of Dermatology [address], [address] [phone] documented in this encounter Visit Diagnoses Not on filedocumented in this encounter
--- OUTSIDE RECORDS SUMMARY | 2024-09-13 07:08 | XMS_ITS | Referral Summary ---
Author Organization [facility] Address [address] [facility] [place] [address] Care Team Providers Care Lens Blank Gauger Name Role Phone Unavailable Primary Care Provider Unavailabl e Source Comments [facility],non-owned Affiliates and Associated Physician Practices is amultiple site organization consisting of ambulatory clinics and hospital sitesin [place], [place], [place] and [place]. This disclosure is being madepursuant to the Care Everywhere program and may not contain all information available regarding this patient. Last updated 18.[facility] Social History Tobacco Use Types Packs/Day Years Used Date Smoking Tobacco: Never Assessed Sex and Gender Information Value Date Recorded Sex Assigned at Not on file Gender Identity Not on file Sexual Orientation Not on file Plan of Treatment Not on file ELEANOR BREAUX Personal/Family Spouse [address] [place] [address]
[2024-09-13 11:05] LABS: Free T3 3.52 pg/mL (2.45-5.93)
== END 2024-09-13 07:06 | disposition home or self-care (01) ==
LOC: ANHLAB 07:06
PROVIDERS: PCP Family Medicine; Visit Provider Family Medicine
DX: R79.89 Other specified abnormal findings of blood chemistry (principal)
CPT/HCPCS: 36415; 84439; 84443; 84481

== ENCOUNTER 2024-11-08 06:36 | Outpatient (RCR) | payer OTHER, SELFPAY ==
[2024-09-13 07:42] LABS: Calcium 9.2 mg/dL (8.4-10.2)
[2024-11-08 07:09] LABS: Calcium 9.5 mg/dL (8.4-10.2)
== END 2024-12-12 23:59 | disposition home or self-care (01) ==
LOC: ANHLAB 06:36
PROVIDERS: PCP Family Medicine; Visit Provider Obstetrics & Gynecology
DX: M81.0 Age-related osteoporosis without current pathological fracture (principal)
CPT/HCPCS: 36415; 82310

== ENCOUNTER 2025-01-10 06:49 | Outpatient (RCR) | payer OTHER, SELFPAY ==
[2025-01-10 08:45] LABS: Calcium 9.3 mg/dL (8.4-10.2)
== END 2025-04-10 23:59 | disposition home or self-care (01) ==
LOC: ANHLAB 06:49
PROVIDERS: PCP Family Medicine; Visit Provider Obstetrics & Gynecology
DX: M81.0 Age-related osteoporosis without current pathological fracture (principal)
CPT/HCPCS: 36415; 82310

== ENCOUNTER 2025-02-16 16:21 | Emergency (ER) | payer OTHER, SELFPAY ==
--- OUTSIDE RECORDS SUMMARY | 2025-02-16 16:23 | XMS_ITS | Encounter Summary ---
Author Organization [facility] Address [address] [place] [place] [address] Care Team Providers Care Pediatric Intensive Physician Name Role Phone Unavailable Primary Care Provider Unavailabl e Encounter Details Date Type Department Care Team (Late st Contact Info) Description 10/11/2021 Lab Requisition [facility] DermPath Lab [address] [facility] [place] [phone] Scottie Romero MD [address] [address] Social History Tobacco Use Types Packs/Day Years Used Date Smoking Tobacco: Never Assessed Comments Unknown Sex and Gender Information Value Date Recorded Sex Assigned at Not on file Legal Sex Female 1:35 PM CDT Gender Identity Not on file Sexual Orientation Not on file documented as of this encounter Plan of Treatment Not on file documented as of this encounter Procedures Procedure Name Priority Date/Time Associated Diagnosis Comments DERMATOPATHOLOGY Routine 10/10/2021 12:0 0 AM CDT documented in this encounter Results * DERMATOPATHOLOGY (10/10/2021 12:00 AM CDT) Case Report Dermatopathology Report Case: [id number] Authorizing Provider: Scottie Romero MD Collected: 10/10/2021 [...] microscopic description) 4:52 PM CDT DERMATOPATHOLOGY LABORATORY at 1652 CDT Clinical History R/O Dysplastic Nevus 2 4:52 PM CDT DERMATOPATHOLOGY LABORATORY Gross Description Specimen A: Received is one formalin filled container labeled with the patients name and designated left distal anterior thigh. The specimen consists of a shave removal measuring [id number] and it is inked. Jar 0. 2 [...] characteristic determined by the Dermatopathology Laboratory at [facility], directed by Dr. Charis Vo. These tests need not be, and therefore are not, approved by the [place] Food and Drug Administration. The tests are used for clinical purposes. Billing Codes Specimen Charges Stain Charges 65709 1 41912 1 2 4:52 PM CDT DERMATOPATHOLOGY LABORATORY Embedded Images 2 4:52 PM CDT DERMATOPATHOLOGY LABORATORY Pathology/Cytolog y TISSUE SPECIMEN FROM SKIN / Unknown 10/10/2021 10/11/2021 1:41 PM CDT Scottie Romero MD LAB - PATHOLOGY/CYTOLOGY ORD ERABLES Final Result DERMATOPATHOLOGY LABORATORY [facility] - Department of Dermatology [address], [address] [phone] documented in this encounter Visit Diagnoses Not on filedocumented in this encounter
--- OUTSIDE RECORDS SUMMARY | 2025-02-16 16:23 | XMS_ITS | Clinical Summary ---
Author Organization [facility] Address [address] [place] [address] Care Team Providers Care Trim And Burr Operator Name Role Phone Unavailable Primary Care Provider Unavailabl e Source Comments [facility],non-owned Affiliates and Associated Physician Practices is amultiple site organization consisting of ambulatory clinics and hospital sitesin [place], [place], [place] and [place]. This disclosure is being madepursuant to the Care Everywhere program and may not contain all information available regarding this patient. Last updated 18.[facility] [employer] Social History Tobacco Use Types Packs/Day Years [...] SCREENING 1960 LIPID TESTING 1960 MAMMOGRAM 1959 HIV SCREENING 1974 HEPATITIS C SCREENING 03/29/1977 DTAP/TDAP/TD VACCINES (1 - Tdap) 1978 PAP SMEAR 1980 PNEUMOCOCCAL VACCINE 50+ (1 of 1 - PCV) 2009 ZOSTER VACCINE (1 of 2) 2009 COVID-19 VACCINE ( - 2023-2 5 season) 2024 DEPRESSION SCREENING 07/07/2024 INFLUENZA VACCINE (#1) 2025 Respiratory Syncytial Virus (RSV) Vaccine Pt: or [...] to complete this topic MENINGOCOCCAL (Group B) VACC INE SHARED DECISION-MAKING Aged Out No longer eligibl e based on patient's age to complete this topic MENINGOCOCCAL GROUPS A/C/Y/W VACCINE Aged Out No longer eligible b ased on patient's age to complete this topic Insurance [facility]
--- OUTSIDE RECORDS SUMMARY | 2025-02-16 16:23 | XMS_ITS | Patient Health Record ---
Author Organization [facility] Address [address] [place], [place] [id number] Care Team Providers Care Director Custom Name Role Phone ParisSURJIT willett Unavailable [phone] Kim Garcia Unavailable Unavailable Reason For Referral No Information Plan Of Treatment No Information Insurance Providers Payer Name Payer Address Payer Phone Subscriber Number Group Number Insured Name Patient Relationship to Insured Coverage Start Date Coverage End Date DAMONR Enrrique / BESSY [address] [id number] SAMIA ORDAZ Self - patient is the insured
[2025-02-16 16:36] VITALS: BP 112/59; PULSE 71; RESP 18; TEMP 36.6; O2SAT 99
[2025-02-16 16:46] LABS: EDUAAPPEAR Cloudy; EDUABILI Negative (Negative); EDUABLOOD 1+ (Negative); EDUACOLOR1 Yellow; EDUAGLUCOSE Negative (Negative); EDUAKETONE Negative (Negative); EDUALEUKO 2+ (Negative); EDUANITRATE Negative (Negative); EDUAPH 5.5; EDUAPROTEIN 1+ (Negative); EDUASPGRAVITY 1.020; EDUAUROBILI 0.2
--- NOTE | 2025-02-16 16:47 | ED_ITS ---
HPI - Female Genitourinary General Chief complaint: Urogenital-Female Stated complaint: bladder infection Time Seen by Provider: 02/16/25 16:47 Source: patient and RN notes reviewed Mode of arrival: ambulatory Limitations: no limitations History of Present Illness HPI Narrative: 64-year-old female presents Express Care complaining of urinary symptoms for for days. Patient reports having dysuria, increased frequency, hesitancy. Patient denies any fevers, abdominal pain, body aches, chills, nausea, vomiting, diarrhea, vaginal bleeding or vaginal discharge, or any other symptoms. Patient has has been taking ibuprofen and cystex without relief. Patient denies any significant past medical history. Related Data Home Medications ?Medication ?Instructions ?Recorded ?Confirmed ?Last Taken ?Type ascorbic acid (vitamin C) 250 mg 250 mg PO DAILY 05/28/19 08/18/24 03/18/23 History tablet cholecalciferol (vitamin D3) 50 2,000 unit PO DAILY 05/28/19 08/18/24 03/18/23 History mcg (2,000 unit) tablet omega-3 fatty acids 1,000 mg 1,000 mg PO DAILY 05/28/19 08/18/24 03/18/23 History capsule vitamin E 200 unit capsule 200 unit PO DAILY 05/28/19 08/18/24 03/18/23 History calcium carbonate 500 mg PO BID 03/07/23 08/18/24 03/18/23 History magnesium 2 tab-cap PO DAILY 05/28/24 08/18/24 Unknown History multivitamin (Daily Multi-Vitamin 1 tablet PO DAILY 06/02/24 08/18/24 Unknown History tablet) romosozumab-aqqg 105 mg/1.17 mL 210 mg subcut MONTHLY 06/02/24 08/18/24 Unknown History subcutaneous syringe (Evenity) Allergies Allergy/AdvReac Type Severity Reaction Status Date / Time penicillin G Allergy Mild Rash Verified 02/16/25 16:29 Penicillins Allergy Mild Rash Verified 02/16/25 16:29 tree nut Allergy Unknown Other Verified 02/16/25 16:29 codeine AdvReac Mild NAUSEA Verified 02/16/25 16:29 Review of Systems Review of Systems: CONSTITUTIONAL: Denies fever, chills, body aches, or sweats. EYES: Denies visual changes, redness, or discharge. ENT: Denies rhinorrhea, congestion, sore throat, or otalgia. CARDIOVASCULAR: Denies chest pain, palpitations, or edema. RESPIRATORY: Denies cough or dyspnea. GASTROINTESTINAL: Denies abdominal pain, nausea, vomiting, or diarrhea. GENITOURINARY: Positive for dysuria, increased frequency, hesitancy. Negative for hematuria, vaginal bleeding, vaginal discharge. SKIN: Denies rash or itching. MUSCULOSKELETAL: Denies back pain, joint pain, or myalgia. NEUROLOGIC: Denies headache, numbness, or weakness. PSYCHIATRIC: Denies anxiety or depression. All other systems reviewed are negative, except as documented in HPI. [facility] Past Medical History Medical History Hyperlipidemia Melanoma in situ (~10/2021) Lt upper thigh. Follows with Dr Romero Osteoporosis Vaginal dryness, menopausal Surgical History Surgical History History of blepharoplasty (~2015) Bilateral reinsertion of levator aponeurosis. History of melanoma excision (~11/2021) Left leg 11/2021 H/O LEEP (~2005) Family History Family History Mother Family history of elevated blood lipids Father Family history of diabetes mellitus in first degree relative Family history of sleep apnea Family history of atrial fibrillation Diabetes mellitus Family history of blood dyscrasia, Onset Age: 72 Grandparent Family history of malignant neoplasm of bone Family history of malignant neoplasm of kidney Diabetes mellitus Other Family history of malignant neoplasm Hypertension Social History Social History Social History: Patient is and lives with , Darren in [place]. She is an RN, work full-time for [employer]. Smoking status: Never smoker Second hand tobacco smoke exposure: No Alcohol intake: current Alcohol use details: very rare use Substance use: never Substance use type: does not use Lack of Transportation: No Lack of Food: Never True Current Housing: I Have Housing Concerned About Future Housing: No Difficulty Paying Gas/Electric Bills: No Difficulty Paying for Meds: No Currently Unemployed: No Education: Associate Degree Difficulty w/ Childcare or Family Care: No Living arrangements: with family Occupation/Education: occupation Additional occupation/education comments: RN at [employer] Gender identity (if verbalized by the patient): Female Sexual Orientation (if Verbalized by the Patient): Straight or Heterosexual Spiritual care concerns: No Agree to blood products: Yes Comments At the time of my signature, I reviewed and agree with the nursing past medical, surgical, social, and family history. There is no relevant family history pertinent to the patient complaint. Exam Narrative: GENERAL: This is a well-nourished, well-developed adult, in no apparent distress. They are non ill-appearing, nontoxic appearing. HEAD: normocephalic, atraumatic. EYES: Sclera clear/white. Vision is grossly intact. Conjunctiva normal bilaterally. Extraocular movements intact. EARS: External ears normal,Hearing grossly intact. NOSE: External nose normal THROAT: Mucous membranes moist NECK: Normal range of motion CARDIOVASCULAR: Regular rate and rhythm. Normal S1-S2. No clicks, gallops, rubs, murmurs. RESPIRATORY: Respiratory rate normal, respiratory effort nonlabored, no respiratory distress. Lung sounds clear to auscultation throughout. Lung sounds equal bilaterally. No adventitious lung sounds. GASTROINTESTINAL: Abdomen soft, flat, non-tender, nondistended. Bowel sounds are active. No hepato-splenomegaly, or palpable masses. No guarding or rigidity. No rebound tenderness. SKIN: warm, Dry, intact with no suspicious lesions or rash, good texture and turgor. NEURO: awake, alert, and oriented to person, place and time. There were no obvious focal neurologic abnormalities. EXTREMITIES: No joint tenderness, effusion, or edema noted. BACK: Nontender without deformity. No CVA tenderness. Course Course Emergency Course: Portions of this record may have been created with voice recognition software Level of Care: Express Care Visit Vital Signs Vital signs: Vital Signs Temperature 97.9 F 02/16/25 16:36 Pulse Rate 71 02/16/25 16:36 Respiratory Rate 18 02/16/25 16:36 Blood Pressure 112/59 L 02/16/25 16:36 Pulse Oximetry 99 02/16/25 16:36 Oxygen Delivery Room Air 02/16/25 16:36 Temperature 97.9 F 02/16/25 16:36 Pulse Rate 71 02/16/25 16:36 Respiratory Rate 18 02/16/25 16:36 Blood Pressure 112/59 L 02/16/25 16:36 Pulse Oximetry 99 02/16/25 16:36 Oxygen Delivery Room Air 02/16/25 16:36 MDM - Female Genitourinary MDM Narrative Medical decision making narrative: Urine dipstick shows 1+ protein, 1+ blood, 2+ leukocyte. Urine dipstick shows evidence of urinary tract infection. Urine culture pending. Will go ahead and treat her with Bactrim. Discussed physical exam findings. Advised supportive measures and signs/symptoms to go to the ER. Pt is appropriate for outpt treatment and f/u. Differential Diagnosis Differential diagnosis: Likely urinary tract infection, cystitis and other (Pyelonephritis) Lab Data Attestation: I reviewed the patient's lab results. Labs: Lab Results 02/16/25 Range/Units 16:43 POC Urine Color Yellow POC Urine Clarity Cloudy POC Urine pH 5.5 POC Ur Specif [place] 1.020 POC Urine Protein 1+ (Negative) POC Ur Glucose (UA) Negative (Negative) POC Urine Ketones Negative (Negative) POC Urine Blood 1+ (Negative) POC Urine Nitrite Negative (Negative) POC Urine Bilirubin Negative (Negative) POC Urine Urobilinogen 0.2 POC U Leukocyte Esteras 2+ (Negative) Discharge Plan Discharge Clinical Impression: Urinary tract infection Qualifiers: Urinary tract infection type: site unspecified Hematuria presence: with hematuria Qualified Code(s): N39.0 - Urinary tract infection, site not specified Patient Disposition: Home Condition: Stable Instructions: Antibiotic Form, Urinary Tract Infection in Women (ED) Additional Instructions: Take the antibiotic as prescribed The urine will be sent of for a culture to identify what type of bacteria is causing your infection. If the culture shows that the antibiotic will not get rid of your infection, you will be notified and a new antibiotic will be called in for you. Increase water intake you will need to follow up with your PCP 3-5 days. Go to the ER for any worsening symptoms, abdominal pain, fevers, nausea, vomiting, or any other concerns Patient Language: [place] Citizen Prescriptions: New sulfamethoxazole-trimethoprim [Bactrim DS] 800-160 mg tablet 1 tablet PO Q12H 3 Days Qty: 6 0RF No Action magnesium 120 mg 2 tab-cap PO DAILY multivitamin [Daily Multi-Vitamin] Tablet 1 tablet PO DAILY Evenity 105 mg/1.17 mL syringe 210 mg subcut MONTHLY triamcinolone acetonide 0.5 % cream 1 applic topical DAILY PRN (Reason: external vaginal irritation) Qty: 15 0RF Rx Instructions: apply for 10-14 days consequtively when symptoms occur Imvexxy Maintenance Pack 10 mcg insert See Rx Instructions .ROUTE .COMPLEX Qty: 24 3RF Dose Instruction: PLACE 1 INSERT VAGINALLY TWICE WEEKLY Rx Instructions: PLACE 1 INSERT VAGINALLY TWICE WEEKLY omega-3 fatty acids 1,000 mg capsule 1,000 mg PO DAILY ascorbic acid (vitamin C) 250 mg tablet 250 mg PO DAILY Patient Comments: .. cholecalciferol (vitamin D3) 2,000 unit tablet 2,000 unit PO DAILY vitamin E 200 unit capsule 200 unit PO DAILY calcium carbonate 500 mg calcium (1,250 mg) Tablet 500 mg PO BID Patient Comments: . Follow-up/Referrals: Mago Henson MD [Primary Care Provider] - Time of Disposition: 17:19
== END 2025-02-16 17:20 | disposition home or self-care (01) ==
PROVIDERS: PCP Family Medicine
DX: N39.0 Urinary tract infection, site not specified (principal); E78.5 Hyperlipidemia, unspecified; M85.80 Other specified disorders of bone density and structure, unspecified site; Z86.006 Personal history of melanoma in-situ
CPT/HCPCS: 81003; 99213; G0463

== ENCOUNTER 2025-03-09 08:15 | Outpatient (CLI) | payer OTHER, SELFPAY ==
--- NOTE | ~2025-03-09 | DEXA_ITS ---
Bone Density Report Name: SAMIA ORDAZ Age: 64 Sex: Female Ethnicity: White Date of : 1960 Indication: postmenopausal osteoporosis; monitoring treatment; Referring Provider: NICHOLAS VALDEZ Study: Bone densitometry was performed. Exam Date: March 09, 2025 Accession number: [id number] Bone Density: Region BMD T-score Z-score Classification AP Spine(L1-L4) 0.873 -1.6 0.2 Osteopenia Femoral Neck (Left) 0.593 -2.3 -0.8 Osteopenia Total Hip (Left) 0.815 -1.0 0.2 Normal Femoral Neck (Right) 0.621 -2.1 -0.5 Osteopenia Total Hip (Right) 0.861 -0.7 0.6 Normal Total Hip Mean 0.838 -0.9 0.4 Normal World Health Organization criteria for BMD impression classify patients as: Normal (T-score at or above -1.0), Osteopenia (T-score between -1.0 and -2.5), or Osteoporosis (T-score at or below -2.5). 10-year Fracture Risk: FRAX not reported because: Treated for osteoporosis Previous Exams: Region Exam Age BMD T-score BMD Change BMD Change Date g/cm2 vs Baseline vs Previous AP Spine (L1-L4) 03/09/2025 64 0.873 -1.6 0.118 (15.7%)* 0.118 (15.7%)* 12/24/2023 63 0.755 -2.7 Total Hip(Left) 03/09/2025 64 0.815 -1.0 0.100 (14.0%)* 0.100 (14.0%)* 12/24/2023 63 0.714 -1.9 Total Hip(Right) 03/09/2025 64 0.861 -0.7 0.115 (15.4%)* 0.115 (15.4%)* 12/24/2023 63 0.746 -1.6 *Denotes significance at 95% confidence level, LSC for AP Spine = 0.022 g/cm2, LSC for Total Hip = 0.027 g/cm2 Clinical Information Provided by Patient: Is being treated for osteoporosis Has used the following medications: Fosamax (i.e. alendronate), Vitamin D, Calcium Patient maximum height was 62 Menopause Age: 52 Drinks caffeinated beverages Onset of menses at age 11 Number of children 2 Impression: The patient has low bone mass, based on the Left Femoral Neck T-score. No significant bone loss was observed. Discussion: PATIENT UNDER TREATMENT WITH NO SIGNIFICANT BMD LOSS SINCE LAST EXAM. In an untreated patient, BMD typically declines with age. A lack of decline or gain is usually a sign that treatment is efficacious and fracture risk is reduced. It is important to ask patients whether they are taking their medications and to encourage continued and appropriate compliance with their osteoporosis therapies to reduce fracture risk. It is also important to review their risk factors and encourage appropriate calcium and vitamin D intakes, exercise, fall prevention and other lifestyle measures. Follow-Up: Consider a repeat BMD and Vertebral Fracture Assessment (VFA) exam in 2 years or sooner if medically necessary, to reassess this patient's status. Reported by: ZULMA on 03/09/2025 9:10:00 AM. Reviewed, dictated and finalized at location A.
--- OUTSIDE RECORDS SUMMARY | 2025-03-09 08:29 | XMS_ITS | Clinical Summary ---
Author Organization [facility] Address [address] [place] [address] Care Team Providers Care Core Maker Helper Name Role Phone Unavailable Primary Care Provider Unavailabl e Source Comments [facility],non-owned Affiliates and Associated Physician Practices is amultiple site organization consisting of ambulatory clinics and hospital sitesin [place], [place], [place] and [place]. This disclosure is being madepursuant to the Care Everywhere program and may not contain all information available regarding this patient. Last updated 18.[facility] [employer] Social History Tobacco Use Types Packs/Day Years [...] patient's age to complete this topic Insurance [facility]
--- OUTSIDE RECORDS SUMMARY | 2025-03-09 08:29 | XMS_ITS | Encounter Summary ---
Author Organization [facility] Health Address [address] [facility] [place] [address] Care Team Providers Care Can Slider Name Role Phone Unavailable Primary Care Provider Unavailabl e Encounter Details Date Type Department Care Team (Late st Contact Info) Description 10/11/2021 Lab Requisition [facility] DermPath Lab [address] [place] [phone] Scottei Romero MD [address] [place] [address] Social History Tobacco Use Types Packs/Day [...] AM CDT) Case Report Dermatopathology Report Case: [id number] Authorizing Provider: Scottie Romero MD Collected: 10/10/2021 12:00 AM Ordering Location: [facility] DermPath Lab Received: 10/11/2021 01:41 PM Pathologist: [...] specimen consists of a shave removal measuring [id number] and it is inked. Jar 0. 2 [...] characteristic determined by the Dermatopathology Laboratory at [facility], directed by Dr. Charis Vo. These tests need not be, and therefore are not, approved by the [place] Food and Drug Administration. The tests are used for clinical purposes. Billing Codes Specimen Charges Stain Charges 65499 1 21531 1 2 4:52 PM CDT DERMATOPATHOLOGY LABORATORY Embedded Images 2 4:52 PM CDT DERMATOPATHOLOGY LABORATORY Pathology/Cytolog y TISSUE SPECIMEN FROM SKIN / Unknown 10/10/2021 10/11/2021 1:41 PM CDT Scottie Romero MD LAB - PATHOLOGY/CYTOLOGY ORD ERABLES Final Result DERMATOPATHOLOGY LABORATORY [facility] - Department of Dermatology [address], [address] [phone] documented in this encounter Visit Diagnoses Not on filedocumented in this encounter
--- OUTSIDE RECORDS SUMMARY | 2025-03-09 08:29 | XMS_ITS | Patient Health Record ---
Author Organization [facility] Address [address] [place], [place] [id number] Care Team Providers Care Can Runner Name Role Phone ParisSURJIT willett Unavailable [phone] Kim Garcia Unavailable Unavailable Reason For Referral No Information Plan Of Treatment No Information Insurance Providers Payer Name Payer Address Payer Phone Subscriber Number Group Number Insured Name Patient Relationship to Insured Coverage Start Date Coverage End Date DAMONR Enrrique / BESSY [address] [id number] SAMIA ORDAZ Self - patient is the insured
== END 2025-03-09 08:16 | disposition home or self-care (01) ==
LOC: ANHFOHIMG 08:16
PROVIDERS: PCP Family Medicine; Visit Provider Obstetrics & Gynecology
DX: Z78.0 Asymptomatic menopausal state (principal); M81.0 Age-related osteoporosis without current pathological fracture; M85.88 Other specified disorders of bone density and structure, other site; M85.852 Other specified disorders of bone density and structure, left thigh; M85.851 Other specified disorders of bone density and structure, right thigh
CPT/HCPCS: 77080

== ENCOUNTER 2025-04-08 07:11 | Outpatient (CLI) | payer OTHER, SELFPAY ==
--- NOTE | ~2025-04-08 | MM_ITS ---
EXAMINATION: MM screening kayli BI w mayra HISTORY: Screening TECHNIQUE: Craniocaudal and mediolateral oblique 3-D tomosynthesis images were obtained and synthetic 2-D images were generated. CAD analysis was submitted and interpreted. COMPARISON: Comparison to multiple prior studies sequentially, with oldest reviewed study dated 12/15/2018. BREAST PARENCHYMAL COMPOSITION: Dense: The breasts are heterogeneously dense, which may obscure small masses FINDINGS: There is no evidence of suspicious mass, calcification, or architectural distortion to suggest malignancy in either breast. There has been no suspicious interval change. IMPRESSION: 1. No mammographic evidence of malignancy. 2. Recommend routine screening mammography in one year. BI-RADS Category 1: Negative Reviewed, dictated and finalized at location B.
--- OUTSIDE RECORDS SUMMARY | 2025-04-08 07:18 | XMS_ITS | Encounter Summary ---
Author Organization [facility] Address [address] [place] [address] Care Team Providers Care Slat Basket Maker Helper Name Role Phone Unavailable Primary Care Provider Unavailabl e Encounter Details Date Type Department Care Team (Late st Contact Info) Description 10/11/2021 Lab Requisition [facility] DermPath Lab [address] [place] [id number] Scottie Romero MD [address] [place] [address] Social History Tobacco Use Types [...] AM CDT) Case Report Dermatopathology Report Case: [id number] Authorizing Provider: Scottie Romero MD Collected: 10/10/2021 12:00 AM Ordering Location: [facility] DermPath Lab Received: 10/11/2021 01:41 PM [...] specimen consists of a shave removal measuring [id number] and it is inked. Jar 0. 2 [...] characteristic determined by the Dermatopathology Laboratory at [facility], directed by Dr. Charis Vo. These tests need not be, and therefore are not, approved by the [place] Food and Drug Administration. The tests are used for clinical purposes. Billing Codes Specimen Charges Stain Charges 96013 1 57077 1 2 4:52 PM CDT DERMATOPATHOLOGY LABORATORY Embedded Images 2 4:52 PM CDT DERMATOPATHOLOGY LABORATORY Pathology/Cytolog y TISSUE SPECIMEN FROM SKIN / Unknown 10/10/2021 10/11/2021 1:41 PM CDT Scottie Romero MD LAB - PATHOLOGY/CYTOLOGY ORD ERABLES Final Result DERMATOPATHOLOGY LABORATORY [facility] - Department of Dermatology [address], [address] [phone] documented in this encounter Visit Diagnoses Not on filedocumented in this encounter
--- OUTSIDE RECORDS SUMMARY | 2025-04-08 07:19 | XMS_ITS | Patient Health Record ---
Author Organization [facility] Address [address] [place], [place] [id number] Care Team Providers Care Clerical Investigator Name Role Phone ParisSURJIT willett Unavailable [phone] Kim Garcia Unavailable Unavailable Reason For Referral No Information Plan Of Treatment No Information Insurance Providers Payer Name Payer Address Payer Phone Subscriber Number Group Number Insured Name Patient Relationship to Insured Coverage Start Date Coverage End Date DAMONR Enrrique / BESSY [address] [id number] SAMIA ORDAZ Self - patient is the insured
--- OUTSIDE RECORDS SUMMARY | 2025-04-08 07:19 | XMS_ITS | Clinical Summary ---
Author Organization [facility] Address [address] [place] [address] Care Team Providers Care Polysilicon Preparation Worker Name Role Phone Unavailable Primary Care Provider Unavailabl e Source Comments [facility],non-owned Affiliates and Associated Physician Practices is amultiple site organization consisting of ambulatory clinics and hospital sitesin [place], [place], [place] and [place]. This disclosure is being madepursuant to the Care Everywhere program and may not contain all information available regarding this patient. Last updated 18.[facility] [employer] Social History Tobacco Use Types Packs/Day Years [...] 2009 ZOSTER VACCINE (1 of 2) 2009 DEPRESSION SCREENING 07/07/2024 COVID-19 VACCINE (1 - 2023-2 5 season) 2025 INFLUENZA VACCINE (#1) 2025 Respiratory Syncytial Virus [...] patient's age to complete this topic Insurance [facility]
== END 2025-04-08 07:12 | disposition home or self-care (01) ==
LOC: ANHFOHIMG 07:14
PROVIDERS: PCP Family Medicine; Visit Provider Obstetrics & Gynecology
DX: Z12.31 Encounter for screening mammogram for malignant neoplasm of breast (principal)
CPT/HCPCS: 77063; 77067

== ENCOUNTER 2025-04-13 10:29 | Emergency (ER) | payer OTHER, MEDICARE, SELFPAY ==
[2025-04-13 10:37] VITALS: BP 111/60; PULSE 66; RESP 17; TEMP 36.5; O2SAT 100
[2025-04-13 10:47] LABS: EDUAAPPEAR Cloudy; EDUABILI Negative (Negative); EDUABLOOD 2+ (Negative); EDUACOLOR1 Light/Pale; EDUAGLUCOSE Negative (Negative); EDUAKETONE Negative (Negative); EDUALEUKO 1+ (Negative); EDUANITRATE Negative (Negative); EDUAPH 5.5; EDUAPROTEIN Negative (Negative); EDUASPGRAVITY 1.005; EDUAUROBILI 0.2
--- NOTE | 2025-04-13 10:51 | ED.FEMALEGU ---
HPI - Female Genitourinary General Chief complaint: Urogenital-Female Stated complaint: UTI Time Seen by Provider: 04/13/25 10:40 Source: patient and RN notes reviewed Mode of arrival: ambulatory Limitations: no limitations History of Present Illness HPI Narrative: 65-year-old female presents Express Care complaining of urinary symptoms for 2-3 days. Patient reports having dysuria, increased frequency, hesitancy. Patient denies any fevers, abdominal pain, body aches, chills, nausea, vomiting, flank pain, diarrhea, vaginal bleeding, vaginal discharge. Patient has tried ibuprofen and cystotec with no relief. Patient denies any significant past medical history. Patient is postmenopausal. Related Data Home Medications ?Medication ?Instructions ?Recorded ?Confirmed ?Last Taken ?Type ascorbic acid (vitamin C) 250 mg 250 mg PO DAILY 05/28/19 08/18/24 03/18/23 History tablet cholecalciferol (vitamin D3) 50 2,000 unit PO DAILY 05/28/19 08/18/24 03/18/23 History mcg (2,000 unit) tablet omega-3 fatty acids 1,000 mg 1,000 mg PO DAILY 05/28/19 08/18/24 03/18/23 History capsule vitamin E 200 unit capsule 200 unit PO DAILY 05/28/19 08/18/24 03/18/23 History calcium carbonate 500 mg PO BID 03/07/23 08/18/24 03/18/23 History magnesium 2 tab-cap PO DAILY 05/28/24 08/18/24 Unknown History multivitamin (Daily Multi-Vitamin 1 tablet PO DAILY 06/02/24 08/18/24 Unknown History tablet) romosozumab-aqqg 105 mg/1.17 mL 210 mg subcut MONTHLY 06/02/24 08/18/24 Unknown History subcutaneous syringe (Evenity) Allergies Allergy/AdvReac Type Severity Reaction Status Date / Time penicillin G Allergy Mild Rash Verified 04/13/25 10:32 Penicillins Allergy Mild Rash Verified 04/13/25 10:32 tree nut Allergy Unknown Other Verified 04/13/25 10:32 codeine AdvReac Mild NAUSEA Verified 04/13/25 10:32 Review of Systems Review of Systems: CONSTITUTIONAL: Denies fever, chills, body aches, or sweats. EYES: Denies visual changes, redness, or discharge. ENT: Denies rhinorrhea, congestion, sore throat, or otalgia. CARDIOVASCULAR: Denies chest pain, palpitations, or edema. RESPIRATORY: Denies cough or dyspnea. GASTROINTESTINAL: Denies abdominal pain, nausea, vomiting, or diarrhea. GENITOURINARY: Positive for dysuria,, hesitancy, increased frequency. Negative for hematuria, vaginal bleeding, vaginal discharge. SKIN: Denies rash or itching. MUSCULOSKELETAL: Denies back pain, joint pain, or myalgia. NEUROLOGIC: Denies headache, numbness, or weakness. PSYCHIATRIC: Denies anxiety or depression. All other systems reviewed are negative, except as documented in HPI. [facility] Past Medical History Medical History Hyperlipidemia Melanoma in situ (~10/2021) Lt upper thigh. Follows with Dr Romero Osteoporosis Vaginal dryness, menopausal Surgical History Surgical History History of blepharoplasty (~2015) Bilateral reinsertion of levator aponeurosis. History of melanoma excision (~11/2021) Left leg 11/2021 H/O LEEP (~2005) Family History Family History Mother Family history of elevated blood lipids Father Family history of diabetes mellitus in first degree relative Family history of sleep apnea Family history of atrial fibrillation Diabetes mellitus Family history of blood dyscrasia, Onset Age: 72 Grandparent Family history of malignant neoplasm of bone Family history of malignant neoplasm of kidney Diabetes mellitus Other Family history of malignant neoplasm Hypertension Social History Social History Social History: Patient is and lives with , Darren in [place]. She is an RN, work full-time for [employer]. Smoking status: Never smoker Second hand tobacco smoke exposure: No Alcohol intake: current Alcohol use details: very rare use Substance use: never Substance use type: does not use Lack of Transportation: No Lack of Food: Never True Current Housing: I Have Housing Concerned About Future Housing: No Difficulty Paying Gas/Electric Bills: No Difficulty Paying for Meds: No Currently Unemployed: No Education: Associate Degree Difficulty w/ Childcare or Family Care: No Living arrangements: with family Occupation/Education: occupation Additional occupation/education comments: RN at [employer] Gender identity (if verbalized by the patient): Female Sexual Orientation (if Verbalized by the Patient): Straight or Heterosexual Spiritual care concerns: No Agree to blood products: Yes Comments At the time of my signature, I reviewed and agree with the nursing past medical, surgical, social, and family history. There is no relevant family history pertinent to the patient complaint. Exam Narrative: GENERAL: This is a well-nourished, well-developed adult, in no apparent distress. They are non ill-appearing, nontoxic appearing. HEAD: normocephalic, atraumatic. EYES: Sclera clear/white. Vision is grossly intact. Conjunctiva normal bilaterally. Extraocular movements intact. EARS: External ears normal,Hearing grossly intact. NOSE: External nose normal THROAT: Mucous membranes moist NECK: Normal range of motion CARDIOVASCULAR: Regular rate and rhythm. Normal S1-S2. No clicks, gallops, rubs, murmurs. RESPIRATORY: Respiratory rate normal, respiratory effort nonlabored, no respiratory distress. Lung sounds clear to auscultation throughout. Lung sounds equal bilaterally. No adventitious lung sounds. GASTROINTESTINAL: Abdomen soft, flat, non-tender, nondistended. SKIN: warm, Dry, intact with no suspicious lesions or rash, good texture and turgor. NEURO: awake, alert, and oriented to person, place and time. There were no obvious focal neurologic abnormalities. EXTREMITIES: No joint tenderness, effusion, or edema noted. BACK: Nontender without deformity. No CVA tenderness. Course Course Emergency Course: Portions of this record may have been created with voice recognition software Level of Care: Express Care Visit Vital Signs Vital signs: Vital Signs Temperature 97.7 F 04/13/25 10:37 Pulse Rate 66 04/13/25 10:37 Respiratory Rate 17 04/13/25 10:37 Blood Pressure 111/60 04/13/25 10:37 Pulse Oximetry 100 04/13/25 10:37 Oxygen Delivery Room Air 04/13/25 10:37 Temperature 97.7 F 04/13/25 10:37 Pulse Rate 66 04/13/25 10:37 Respiratory Rate 17 04/13/25 10:37 Blood Pressure 111/60 04/13/25 10:37 Pulse Oximetry 100 04/13/25 10:37 Oxygen Delivery Room Air 04/13/25 10:37 MDM - Female Genitourinary MDM Narrative Medical decision making narrative: Urine dipstick 2+ blood, 1+ leukocytes, Urine culture pending. Symptoms consistent with urinary tract infection. Will treat with Macrobid. Discussed physical exam findings. Advised supportive measures and signs/symptoms to go to the ER. Pt is appropriate for outpt treatment and f/u. Differential Diagnosis Differential diagnosis: Likely urinary tract infection, cystitis and other (Pyelonephritis) Lab Data Attestation: I reviewed the patient's lab results. Labs: Lab Results 04/13/25 Range/Units 10:43 POC Urine Color Light/pale POC Urine Clarity Cloudy POC Urine pH 5.5 POC Ur Specif [place] 1.005 POC Urine Protein Negative (Negative) POC Ur Glucose (UA) Negative (Negative) POC Urine Ketones Negative (Negative) POC Urine Blood 2+ (Negative) POC Urine Nitrite Negative (Negative) POC Urine Bilirubin Negative (Negative) POC Urine Urobilinogen 0.2 POC U Leukocyte Esteras 1+ (Negative) Discharge Plan Discharge Clinical Impression: Urinary tract infection Qualifiers: Urinary tract infection type: site unspecified Hematuria presence: with hematuria Qualified Code(s): N39.0 - Urinary tract infection, site not specified Patient Disposition: Home Condition: Stable Instructions: Antibiotic Form, Urinary Tract Infection in Older Adults (ED) Additional Instructions: Take the antibiotic as prescribed The urine will be sent of for a culture to identify what type of bacteria is causing your infection. If the culture shows that the antibiotic will not get rid of your infection, you will be notified and a new antibiotic will be called in for you. Increase water intake you will need to follow up with your PCP 3-5 days. If you have recurrent UTIs you may need to see a urologist. Go to the ER for any worsening symptoms, abdominal pain, flank pain, chills, fevers, nausea, vomiting, or any other concerns Patient Language: Mongolian Prescriptions: New nitrofurantoin monohyd/m-cryst [Macrobid] 100 mg capsule 100 mg PO Q12H 5 Days Qty: 10 0RF Rx Instructions: must administer with a meal/food No Action sulfamethoxazole-trimethoprim [Bactrim DS] 800-160 mg tablet 1 tablet PO Q12H 3 Days Qty: 6 0RF magnesium 120 mg 2 tab-cap PO DAILY multivitamin [Daily Multi-Vitamin] Tablet 1 tablet PO DAILY Evenity 105 mg/1.17 mL syringe 210 mg subcut MONTHLY triamcinolone acetonide 0.5 % cream 1 applic topical DAILY PRN (Reason: external vaginal irritation) Qty: 15 0RF Rx Instructions: apply for 10-14 days consequtively when symptoms occur omega-3 fatty acids 1,000 mg capsule 1,000 mg PO DAILY ascorbic acid (vitamin C) 250 mg tablet 250 mg PO DAILY Patient Comments: .. cholecalciferol (vitamin D3) 2,000 unit tablet 2,000 unit PO DAILY vitamin E 200 unit capsule 200 unit PO DAILY calcium carbonate 500 mg calcium (1,250 mg) Tablet 500 mg PO BID Patient Comments: . Imvexxy Maintenance Pack 10 mcg insert See Rx Instructions .ROUTE .COMPLEX Qty: 24 0RF Dose Instruction: PLACE 1 INSERT VAGINALLY TWICE WEEKLY Rx Instructions: PLACE 1 INSERT VAGINALLY TWICE WEEKLY Follow-up/Referrals: Mago Henson MD [Primary Care Provider, Family Practice] Time of Disposition: 10:50
== END 2025-04-13 10:51 | disposition home or self-care (01) ==
PROVIDERS: PCP Family Medicine
DX: N39.0 Urinary tract infection, site not specified (principal); E78.5 Hyperlipidemia, unspecified; M81.0 Age-related osteoporosis without current pathological fracture; Z86.006 Personal history of melanoma in-situ
CPT/HCPCS: 81003; 87077; 87086; 87186; 99213; G0463

== ENCOUNTER 2025-04-19 07:15 | Outpatient (CLI) | payer OTHER, SELFPAY ==
--- OUTSIDE RECORDS SUMMARY | 2025-04-19 07:19 | XMS_ITS | Clinical Summary ---
Author Organization [facility] Address [address] [place] [address] Care Team Providers Care Front Desk Coordinator Name Role Phone Unavailable Primary Care Provider Unavailabl e Source Comments [facility],non-owned Affiliates and Associated Physician Practices is amultiple site organization consisting of ambulatory clinics and hospital sitesin [place], [place], [place] and [place]. This disclosure is being madepursuant to the Care Everywhere program and may not contain all information available regarding this patient. Last updated 18.[facility] Social History Tobacco Use Types Packs/Day Years [...] SCREENING 1959 LIPID TESTING 1959 MAMMOGRAM 1959 HEPATITIS C SCREENING 03/29/1977 DTAP/TDAP/TD VACCINES (1 [...] patient's age to complete this topic Insurance [facility]
--- OUTSIDE RECORDS SUMMARY | 2025-04-19 07:19 | XMS_ITS | Patient Health Record ---
Author Organization [facility] Address [address] [place], [place] [id number] Care Team Providers Care Mica Spreader Name Role Phone ParisSURJIT willett Unavailable [phone] Kim Garcia Unavailable Unavailable Reason For Referral No Information Plan Of Treatment No Information Insurance Providers Payer Name Payer Address Payer Phone Subscriber Number Group Number Insured Name Patient Relationship to Insured Coverage Start Date Coverage End Date DAMONR Enrrique / BESSY [address] [id number] SAMIA ORDAZ Self - patient is the insured
[2025-04-19 09:06] LABS: Albumin Level 4.1 g/dL (3.5-5.1); Calcium 9.4 mg/dL (8.4-10.2)
== END 2025-04-19 07:16 | disposition home or self-care (01) ==
LOC: ANHLAB 07:17
PROVIDERS: PCP Family Medicine; Visit Provider Obstetrics & Gynecology
DX: M81.0 Age-related osteoporosis without current pathological fracture (principal)
CPT/HCPCS: 36415; 82040; 82310